=== PATIENT | female | born 1990 | race Caucasian/White ===

== ENCOUNTER 2018-12-19 11:46 | Inpatient (IN) | payer MEDICAID ==
[2018-12-19 12:23] LABS: ADD MAN DIFF? NO
[2018-12-19 12:25] LABS: BASOPHILS % 0.3 % (0.0-2.0); EOSINOPHILS % 0.5 % (0.0-7.0); HEMATOCRIT 35.7 % (37.0-47.0); HEMOGLOBIN 11.6 g/dl (12.0-16.0); LYMPHOCYTES % 25.3 % (15.0-51.0); MEAN CORPUSCULAR HEMOGLOBIN 25.7 pg (29.0-33.0); MEAN CORPUSCULAR HGB CONC 32.5 g/dl (32.0-37.0); MEAN CORPUSCULAR VOLUME 79.2 fl (82.0-101.0); MEAN PLATELET VOLUME 11.4 fl (7.4-10.4); MONOCYTE # 0.5 10^3/ul (0.3-0.9); MONOCYTES % 5.8 % (0.0-11.0); NEUTROPHIL # 5.3 10^3/ul (1.6-7.5); NEUTROPHILS % 67.7 % (39.0-77.0); PLATELET COUNT 272 10^3/UL (140-415); RED BLOOD COUNT 4.51 10^6/ul (4.20-5.40); RED CELL DISTRIBUTION WIDTH 14.4 % (11.5-14.5)
[2018-12-19 12:25] LABS: WHITE BLOOD COUNT 7.8 10^3/ul (4.8-10.8)
[2018-12-19] MEDS ORDERED: CARBOPROST 250 MCG INJ IM ×2 (12:30→13:30)
[2018-12-19] MEDS ORDERED: AMPICILLIN 2 GM/NS (PMX) 100 ML IV (12:30)
[2018-12-19] MEDS ORDERED: MISOPROSTOL 200 MCG TAB PR ×2 (12:30→13:30)
[2018-12-19] MEDS ORDERED: OXYTOCIN 30 UNITS/LR 500 ML IV ×2 (12:30→13:30)
[2018-12-19] MEDS ORDERED: METHYLERGONOVINE 0.2 MG INJ IM (12:30)
[2018-12-19] MEDS: OXYTOCIN 30 UNITS/LR 500 ML IV ×3 (12:55→13:17)
[2018-12-19] MEDS: LIDOCAINE 1% (MPF) 30 ML INJ INJ (12:57)
[2018-12-19 12:58] LABS: INR 0.84; PARTIAL THROMBOPLASTIN TIME 31.2 Sec (23.0-35.0); PROTIME 11.6 Sec (11.9-14.9); PT RATIO 0.9
[2018-12-19] MEDS: LACTATED RINGER'S 1,000 ML IV (13:02)
[2018-12-19] MEDS ORDERED: morphine 2 MG INJ IV (13:30)
[2018-12-19] MEDS ORDERED: DIPHENHYDRAMINE 25 MG CAP PO (13:30)
[2018-12-19] MEDS ORDERED: ONDANSETRON 4 MG INJ IV (13:30)
[2018-12-19] MEDS ORDERED: NACL 0.9% 3 ML SYG IV (13:30)
[2018-12-19] MEDS ORDERED: ZOLPIDEM 5 MG TAB PO (13:30)
[2018-12-19] MEDS ORDERED: HYDROCODONE/APAP (5/325) TAB PO (13:30)
[2018-12-19 13:36] LABS: HEPATITIS B SURFACE ANTIGEN NEGATIVE (NEGATIVE)
[2018-12-19] MEDS ORDERED: AMPICILLIN 1 GM/NS (PMX) 50 ML IV (16:30)
[2018-12-19] MEDS: LANOLIN HPA 1 PKT TOP (17:40)
[2018-12-19] MEDS: WITCH HAZEL/GLYCERIN PAD PR (17:40)
[2018-12-19] MEDS: IBUPROFEN 600 MG TAB PO ×2 (17:40→23:30)
[2018-12-19 20:13] LABS: RAPID PLASMA REAGIN NONREACTIVE (NR)
[2018-12-19] MEDS: SENNA/DOCUSATE NA (8.6MG/50MG) TAB PO (22:06)
[2018-12-20] MEDS: IBUPROFEN 600 MG TAB PO ×4 (05:52→23:33)
[2018-12-20 07:16] LABS: ADD MAN DIFF? NO
[2018-12-20 07:30] LABS: BASOPHILS % 0.2 % (0.0-2.0); EOSINOPHILS # 0.1 10^3/ul (0.0-0.5); EOSINOPHILS % 1.4 % (0.0-7.0); HEMATOCRIT 34.5 % (37.0-47.0); HEMOGLOBIN 10.9 g/dl (12.0-16.0); LYMPHOCYTES # 2.1 10^3/ul (0.8-2.9); LYMPHOCYTES % 25.8 % (15.0-51.0); MEAN CORPUSCULAR HEMOGLOBIN 25.2 pg (29.0-33.0); MEAN CORPUSCULAR HGB CONC 31.6 g/dl (32.0-37.0); MEAN CORPUSCULAR VOLUME 79.7 fl (82.0-101.0); MEAN PLATELET VOLUME 11.7 fl (7.4-10.4); MONOCYTE # 0.4 10^3/ul (0.3-0.9); MONOCYTES % 4.7 % (0.0-11.0); NEUTROPHIL # 5.4 10^3/ul (1.6-7.5); NEUTROPHILS % 67.4 % (39.0-77.0); PLATELET COUNT 243 10^3/UL (140-415); RED BLOOD COUNT 4.33 10^6/ul (4.20-5.40); RED CELL DISTRIBUTION WIDTH 14.6 % (11.5-14.5)
[2018-12-20] MEDS: PRENATAL VITAMIN PO (10:01)
[2018-12-20] MEDS: SENNA/DOCUSATE NA (8.6MG/50MG) TAB PO ×2 (10:01→21:05)
[2018-12-21] MEDS: IBUPROFEN 600 MG TAB PO ×2 (05:37→11:45)
[2018-12-21] MEDS: VARICELLA VACCINE LIVE/PF 1,350 UNIT/0.5 ML ML SC* (08:05)
[2018-12-21] MEDS: MEASLES,MUMPS,RUBELLA VACCINE INJ SC* (08:05)
[2018-12-21] MEDS: SENNA/DOCUSATE NA (8.6MG/50MG) TAB PO (09:15)
[2018-12-21] MEDS: PRENATAL VITAMIN PO (09:15)
[2018-12-21] MEDS: DIPHTH/TET/ACEL PERTUSS (ADULT) 0.5 ML VIAL IM* (09:16)
[2018-12-21] MEDS: WITCH HAZEL/GLYCERIN PAD PR (11:49)
[2018-12-21] MEDS: LANOLIN HPA 1 PKT TOP (11:49)
[2018-12-24 12:07] LABS: RUBELLA ANTIBODY - IGM <20.00 AU/mL
== END 2018-12-21 17:38 | disposition home or self-care (01) | DRG 807 ==
LOC: OBT 11:46 → L-D 11:48 → OBT 11:56 → L-D 11:59 → PP1 14:48
PROVIDERS: Obstetrics & Gynecology
PROC: 10E0XZZ Delivery of Products of Conception, External Approach (ICD-10-PCS; principal; 2018-12-19)
PROC: 0HQ9XZZ Repair Perineum Skin, External Approach (ICD-10-PCS; 2018-12-19)
DX: O70.0 First degree perineal laceration during delivery (principal); Z37.0 Single live birth; O71.89 Other specified obstetric trauma; Z3A.39 39 weeks gestation of pregnancy
CPT/HCPCS: 85025; 85610; 85730; 86592; 86762; 86850; 86900; 86901; 87340; 90715; 90716